=== PATIENT | male | born 1955 | race Caucasian/White ===

== ENCOUNTER 2017-02-22 07:38 | Outpatient (CLI) | payer BC | END 2017-02-22 07:39 | disposition home or self-care (01) | DX: Z00.00 Encounter for general adult medical examination without abnormal findings (principal); L71.9 Rosacea, unspecified; R03.0 Elevated blood-pressure reading, without diagnosis of hypertension; Z12.5 Encounter for screening for malignant neoplasm of prostate ==

== ENCOUNTER 2017-08-29 16:38 | Outpatient (CLI) | payer BC ==
--- NOTE | 2017-08-30 09:04 | XRAY Report ---
THREE-VIEW LEFT FOOT: 08/29/2017 CLINICAL INDICATION: Pain, edema. FINDINGS: AP, lateral, oblique views of the left foot demonstrate no evidence of fracture or disloca tion. The joint spaces are preserved. No radiopaque foreign body is seen in the soft tissues. IMPRESSION: NORMAL LEFT FOOT. JOB #: [id number] EXT JOB #:[id number]
== END 2017-08-29 16:39 | disposition home or self-care (01) ==
LOC: DI 16:38
PROVIDERS: ATTEND Podiatrist
DX: M25.572 Pain in left ankle and joints of left foot (principal)

== ENCOUNTER 2018-04-04 09:27 | Outpatient (CLI) | payer BC ==
[2018-04-04 13:26] LABS: ALBUMIN 4.3 g/dL (3.2-5.5); ALBUMIN/GLOBULIN RATIO 1.4 (1.0-2.2); BILIRUBIN,TOTAL 1.1 mg/dL (0.2-1.0); CALCIUM 9.1 mg/dL (8.5-10.3); CREATININE 0.9 mg/dL (0.6-1.2); TOTAL PROTEIN 7.4 g/dL (6.7-8.2)
== END 2018-04-04 09:28 | disposition home or self-care (01) ==
LOC: LAB.WCP 09:27
PROVIDERS: ATTEND Family Medicine
DX: R03.0 Elevated blood-pressure reading, without diagnosis of hypertension (principal); Z12.5 Encounter for screening for malignant neoplasm of prostate
CPT/HCPCS: 36415; 80053; 84153